=== PATIENT | male | born 1990 | race Caucasian/White ===

== ENCOUNTER 2016-10-20 19:09 | Emergency (ER) | payer SELFPAY ==
[2016-10-20] MEDS ORDERED: NALOXONE 2 MG/2 ML SYRINGE IV STA ×3 (19:14→21:04)
[2016-10-20] MEDS ORDERED: NALOXONE 2 MG/2 ML SYRINGE ONE (19:15)
--- NOTE | 2016-10-20 19:20 | EDPRACDOC ---
<Estrella Stephens N - Last Filed: 10/20/16 22:43> - General Information Information Source: [facility] Mode Of Arrival: Ambulance - History of Present Illness Onset: 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 Exact Onset of Symptoms: Known Date Symptoms Started: 10/20/16 Time Symptoms Started: 18:45 HPI: PT PRESENTS AFTER APPARENT DAVIN OVERDOSE. PT WAS RIDING WITH HIS MOTHER, MOTHER STATES SHE WENT INTO THE STORE, WASN'T GONE ANY LONGER THAN 5 MINUTES AND WHEN SHE CAME OUT THE PATIENT WAS NOT BREATHING AND UNCONSCIOUS. PT HAS RECENTLY BEEN [facility]ED [facility] FOR SAME. PT GIVEN 1 MG NARCAN BY EMS AND BEGAN BREATHING. PRESENTS SOMNOLENT WITH NASAL TRUMPET IN PLACE. Symptoms began: Suddenly Duration: Since Onset Symptoms Currently: Reports: Improved Altered Quality: Reports: Decreased Alertness Altered Severity: Reports: Unable to care for self, Unresponsive Recent Symptoms of: Reports: Medications/drug use Relevant History: Reports: IV drug use Prehospital: Reports: EMT, [facility], O2, IV, Narcan Associated signs and symptoms: Denies: N, O, Chest pain, Headache, Seizure, Slurred speech, Weakness <Tomasa Quispe W - Last Filed: 10/20/16 23:09> - General Information Chief Complaint: Overdose Stated Complaint: HEROIN OVERDOSE Time Seen by Provider: 10/20/16 19:10 Home Medications: Home Medications Naloxone HCl [Narcan] 4 mg NS DIR PRN #1 spray 10/20/16 Allergies/Adverse Reactions: Allergies Allergy/AdvReac Type Severity Reaction Status Date / Time No Known Allergies Allergy Verified 10/20/16 19:22 - Treatment Prior to ED Arrival Reported Medications/Treatment 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 Treated With Medication 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 YES Medications 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 (Medication/ Narcan 1 mg per EMS Dose/Time) EMS Treatment BLS IV Yes <Estrella Stephens N - Last Filed: 10/20/16 22:43> ED Past Medical History - History Reviewed Yes Nurses notes reviewed and agree except as marked - Patient Medical History Cardiac History: Reports: Hypertension Psychological History: Reports: Substance Use Disorder - Social Medical History Smoking Status: Heavy tobacco smoker (5 or more cigarettes/day or daily pipe/ cigar) Social History: Reports: Substance Use Disorder <Tomasa Quispe W - Last Filed: 10/20/16 23:09> EDM Review of Systems - Review of Systems ROS Negative Except as Marked: Yes All systems reviewed and were negative except as marked <Tomasa Quispe W - Last Filed: 10/20/16 23:09> - Physical Exam Last recorded Vital Signs: Last Vital Signs Temp 97.9 F 10/20/16 19:24 Pulse 84 10/20/16 21:45 Resp 18 10/20/16 21:45 BP 130/73 10/20/16 21:45 Pulse Ox 95 10/20/16 21:45 Oxygen Pulse Oxygen Saturation 95 O2 Device Oxygen Flow Rate Fraction of Inspired Oxygen ( FIO2) <Estrella Stephens - Last Filed: 10/20/16 22:43> - Physical Exam Constitutional: Somnolent Oriented to: Not Oriented Last recorded Vital Signs: Oxygen Pulse Oxygen Saturation O2 Device Oxygen Flow Rate Fraction of Inspired Oxygen ( FIO2) - HEENT Head: Normal ( normocephalic) Eye Exam: Pale Conjunctiva Oropharynx: Membranes Dry Tympanic Membrane: Normal Nose: No Symptoms Reported (septum midline) Neck: Normal (FROM, trachea at midline) - Respiratory/Cardiovascular Respiratory: Normal - CTA (BBS clear to auscultation without adventitious sounds ) Cardiovascular: Tachycardia - GI Auscultation: Normal (NABS) Palpation: Normal (Soft,No rebound or guarding, non distended) Tenderness: Non tender Olvera's Sign: Negative Rectal Exam: Deferred - Musculoskeletal Back: Normal (Non-Tender) Extremities: Normal (Normal tone, Pulses 2+ No cyanosis or edema, FROM) - Integumentary Skin: Normal, Warm, Dry Lymphatics: Normal (no adenopathy) - Neurologic Memory Impaired: Unable to Test Motor Function: Unable to Test Cranial Nerve: Unable to Test Cerebellar: Unable to Test <Tomasa Quispe W - Last Filed: 10/20/16 23:09> Initial Evaluation Apperance: Casual (PT SOMNOLENT - UNABLE TO ASK QUESTIONS) <Tomasa Quispe - Last Filed: 10/20/16 23:09> - Re-evaluation Re-evaluation 3 Re-evaluation Time: 21:47 (AWAKENED AGAIN WITH NARCAN.) - Results 10/20/16 21:40 10/20/16 21:40 <Estrella Stephens - Last Filed: 10/20/16 22:43> - Differential Diagnosis Drug Overdose - Re-evaluation Re-evaluation 1 Re-evaluation Time: 20:20 (PT STILL VERY SLEEPY, STATES HE DID NOT DO THIS TO HURT HIMSELF. ) Re-evaluation 2 Re-evaluation Time: 21:05 (PT REMAINS VERY SLEEPY, DIFFICULT TO AROUSE. DISCUSSED WITH DR STEPHENS. WILL GIVE MORE NARCAN, GET LABS AND CONTINUE TO MONITOR) Re-evaluation 4 Re-evaluation Time: 22:02 (PT BEGAN TO C/O OF CHEST PAIN, CONSISTENT WITH CHEST COMPRESSIONS. EKG DONE, NO CHANGE FROM PREVIOUS. ) Re-evaluation 5 Re-evaluation Time: 23:08 (PT AMBULATED IN HALLWAY WITHOUT DIFFICULTY. NO ACUTE DISTRESS NOTED. ) - Results 10/20/16 21:40 10/20/16 21:40 - EKG EKG #1 EKG Time: 19:16 -: Yes EKG interpreted by me Rate: bpm: 102 [place]: RAD Rhythm: ST Block: RBBB (INCOMPLETE) Hypertrophy: None ST: Normal EKG #2 EKG Time: 21:46 -: Yes EKG interpreted by me Rate: bpm: 95 [place]: RAD Rhythm: NSR Block: None (RIGHT VENTRICULAR CONDUCTION DELAY) Hypertrophy: None ST: Normal <Tomasa Quispe W - Last Filed: 10/20/16 23:09> <Estrella Stephens - Last Filed: 10/20/16 22:43> Decision Time to Discharge: 23:08 - Departure Disposition: Home Education/Counseling Given To: Patient Education/Counseling Given Regarding: Diagnosis, Treatment, Prognosis, Follow Up <Tomasa Quispe - Last Filed: 10/20/16 23:09> - Departure Condition: Stable Final Diagnosis: IV drug abuse, Narcotic overdose, Cocaine abuse Instructions: Cocaine Abuse (ED), Narcotic Abuse (ED), Accidental Overdose Referrals: Jazmin Martinez MD [Primary Care Provider] - One Week Prescriptions: New Naloxone HCl [Narcan] 4 mg NS DIR PRN #1 spray PRN Reason: PAIN MEDICATION BREATHING PROB
[2016-10-20 19:28] VITALS: TEMP 97.9; BMI 20.3
[2016-10-20] MEDS ORDERED: NS 1,000 ML IV ONE ×2 (21:04)
[2016-10-20 21:47] LABS: AUTOMATED BASOPHIL 0.4 % (0-2); AUTOMATED LYMPH 3.9 % (17-44); AUTOMATED MONOCYTE 9.5 % (3-10); AUTOMATED NEUTROPHIL 86.2 % (45-76); MPV 7.3 fL (7.4-10.4)
[2016-10-20 22:01] LABS: PARTIAL THROMB. TIME 25.9 SEC (22-35); PT-INR 1.2
[2016-10-20 22:05] LABS: ALL NEG? NO
[2016-10-20 22:05] LABS: BLOOD UREA NITROGEN 16 MG/DL (9-20); CALCIUM 8.2 MG/DL (8.4-10.2); CALCULATED OSMOLALITY 269 MOs/Kg (270-290); CHLORIDE 99 mEq/L (98-107); ETOH-MGDL < 10 mg/dL; GLUCOSE 76 mg/dL (70-99); SODIUM LEVEL 140 mEq/L (137-146); TOTAL PROTEIN 8.2 G/DL (6.3-8.2)
[2016-10-20 22:14] LABS: MDMA* NEG (NEGATIVE); METHAMPHETAMINES NEG (NEGATIVE); OXYCODONE *POSITIVE* (NEGATIVE)
[2016-10-20 23:11] LABS: LEUKOCYTES/URINE NEG (NEGATIVE); NITRITE/URINE NEG (NEGATIVE); URINE OCCULT BLOOD NEG (NEG/TRACE)
[2016-10-21 00:19] VITALS: BP 102/57; PULSE 93
== END 2016-10-21 00:15 | disposition home or self-care (01) ==
LOC: ED 19:09
DX: T40.1X1A Poisoning by heroin, accidental (unintentional), initial encounter (principal); F14.10 Cocaine abuse, uncomplicated
CPT/HCPCS: 36415; 80053; 80307; 81001; 85025; 85610; 85730; 93005; 96361; 96374; 96376; 99285; J2310